=== PATIENT | male | born 1965 | race Caucasian/White ===

== ENCOUNTER → 2016-05-12 | Outpatient (CLI) | payer BC ==
--- NOTE | 2016-05-12 11:29 | DIAGNOSTIC IMAGING REPORT ---
CHEST 2 VIEWS ROUTINE CLINICAL HISTORY: Cough, wheezing. COMPARISON STUDY: No previous studies for comparison. FINDINGS: The heart is normal in size. There are diffuse bilateral reticulonodular opacities with upper lung zone predominance. The chronicity of this process is not known. There are no pleural effusions.[ IMPRESSION: Diffuse bilateral reticulonodular opacities with upper lung zone predominance. The chronicity of this process is not known. Electronically signed by: Jordan Jeffers M.D. 05/12/2016 11:26 AM Dictated Date/Time: 05/12/2016 11:25 AM
== END | disposition home or self-care (01) ==
LOC: C.RAD 11:07
PROVIDERS: ATTEND Nurse Practitioner Family
DX: R05 Cough (principal); R06.2 Wheezing

== ENCOUNTER → 2017-11-18 | Outpatient (CLI) | payer BC ==
[2017-11-18 10:21] LABS: BASO % 0.3 %; BASO ABS # 0.01 K/uL (0-0.2); EOS % 2.3 %; EOS ABS # 0.08 K/uL (0-0.5); HEMOGLOBIN 14.5 g/dL (14.0-18.0); IG# 0.01 K/uL (0.00-0.02); LYMPH % 17.4 %; LYMPH ABS # 0.61 K/uL (1.2-3.4); MEAN CELL VOLUME 79.1 fL (80-100); MEAN CORPUSCULAR HEMOGLOBIN 26.1 pg (25-34); MEAN PLATELET VOLUME 9.3 fL (7.4-10.4); MONO ABS # 0.49 K/uL (0.11-0.59); NEUT % 65.7 %; NEUT ABS # 2.31 K/uL (1.4-6.5); PLATELET COUNT 155 K/uL (130-400); RED CELL DISTRIBUTION WIDTH CV 14.4 % (11.5-14.5); RED CELL DISTRIBUTION WIDTH SD 41.3 fL (36.4-46.3); WHITE BLOOD COUNT 3.51 K/uL (4.8-10.8)
[2017-11-18 10:35] LABS: INR 0.9 (0.9-1.1); PTT PATIENT 26.6 SECONDS (21.0-31.0)
== END | disposition home or self-care (01) ==
LOC: C.LAB 09:24
PROVIDERS: ATTEND Nurse Practitioner Family
DX: R58 Hemorrhage, not elsewhere classified (principal)